=== PATIENT | female | born 1930 | race Caucasian/White ===

== ENCOUNTER 2016-07-07 04:48 | Emergency (ER) | payer MEDICARE ==
[~2016-07-07] VITALS: Ht 152.4 cm; Wt 147.4 kg
--- NOTE | 2016-07-07 04:48 | NUR ---
Patient to ER bed 6 to gown for evaluation. Side rails up. Report given to LOGAN OLMEDO.
--- NOTE | 2016-07-07 04:50 | NUR ---
Patient AAO x4, sitting in bed, brought in by BLS for fall. Patient states she was sitting in her wheel chair and the lift failed and she "slid to the floor", patient states she did not want to come to the ER but the paramedics told her she should. Patient denies pain, denies chest pain, denies shortness of breath. Vital signs stable. No acute distress note. Patient BS 79. Will continue to monitor.
[2016-07-07 04:55] VITALS: BP 118/55; PULSE 75; RESP 14; TEMP 97.9; O2SAT 95
--- NOTE | 2016-07-07 04:55 | NUR ---
ER at bedside examining patient.
[2016-07-07 05:24] LABS: BILIRUBIN,URINE NEGATIVE (NEGATIVE); CLARITY/URINE CLOUDY (CLEAR); COLOR,URINE YELLOW (YELLOW); GLUCOSE,URINE NEGATIVE (NEGATIVE); KETONES,URINE NEGATIVE (NEGATIVE); LEUKOCYTE ESTERASE ,URINE 3+ (NEGATIVE); NITRITE, URINE NEGATIVE (NEGATIVE); PH,URINE 5.5 (5.0-8.0); PROTEIN URINE NEGATIVE (NEGATIVE); UROBILINOGEN,URINE 0.2 (0.2-1.0)
[2016-07-07 05:30] LABS: BLOOD, URINE TRACE (NEGATIVE)
[2016-07-07 05:32] LABS: BACTERIA,URINE MODERATE /HPF (None Seen); MUCUS,URINE None Seen /LPF (None Seen); RBC,URINE 0-3 /HPF (0-3); WBC,URINE 80-100 /HPF (0-3)
[2016-07-07 05:35] LABS: BASOPHILS % (AUTO) 0.2 % (0.0-2.0); EOSINOPHILS # (AUTO) 0.4 K/uL (0.0-0.4); EOSINOPHILS % (AUTO) 5.3 % (0.0-4.0); HEMATOCRIT 33.2 % (36-48); HEMOGLOBIN 10.8 g/dL (12.0-16.0); LYMPHOCYTES # (AUTO) 1.2 K/uL (1.0-5.5); MEAN CORPUSCULAR HEMOGLOBIN 30 pg (27-31); MEAN CORPUSCULAR HGB CONC 33 % (32-36); MEAN CORPUSCULAR VOLUME 92 fL (79.0-98.0); MONOCYTES # (AUTO) 0.6 K/uL (0.0-1.0); MONOCYTES % (AUTO) 6.9 % (1.7-9.3); NEUTROPHILS % (AUTO) 72.6 % (40.0-70.0); PLATELET COUNT (AUTO) 218 K/uL (130-430); RED BLOOD CELL COUNT(AUTO) 3.62 MIL/uL (4.2-6.2); RED CELL DISTRIBUTION WIDTH 12.8 % (9.0-15.0); WHITE BLOOD COUNT (AUTO) 8.2 K/uL (4.8-10.8)
[2016-07-07 05:43] LABS: ANION GAP 7 (5-15); CALCIUM 9.1 mg/dL (8.4-11.0); CHLORIDE 104 mmol/L (98-107); CREATININE 1.54 mg/dL (0.55-1.30); GLUCOSE 94 mg/dL (70-99); POTASSIUM 4.5 mmol/L (3.5-5.1); SODIUM SERUM 138 mmol/L (136-145); UREA NITROGEN, BLOOD 33 mg/dL (8-21)
[2016-07-07 05:48] LABS: ALANINE AMINOTRANSFERASE 19 U/L (12-78); ALBUMIN 3.5 g/dL (3.4-4.8); ASPARTATE AMINOTRANSFERASE 15 U/L (10-37); TOTAL BILIRUBIN 0.5 mg/dL (0.0-1.0); TOTAL PROTEIN, SERUM 7.3 g/dL (6.4-8.3)
--- NOTE | 2016-07-07 05:50 | NUR ---
Patient c/o Left shoulder and left elbow pain 12/06. Ice pack placed on left elbow. Md informed. No new orders at this time.
[2016-07-07] MEDS ORDERED: cefTRIAXone 1 GM VIAL IM ONE (06:00)
[2016-07-07] MEDS ORDERED: LIDOCAINE 1%, 20 ML MDV 20 ML ONE (06:16)
[2016-07-07] MEDS ORDERED: MORPHINE 4 MG/ML INJ. SYRINGE ONE (06:23)
[2016-07-07] MEDS ORDERED: MORPHINE 4 MG/ML INJ. SYRINGE IM ONE (06:30)
[2016-07-07] MEDS ORDERED: ONDANSETRON HCL 4 MG/2 ML VIAL IM ONE (06:30)
--- NOTE | 2016-07-07 06:35 | NUR ---
Patient tolerated medication well. No acute distress noted. Will continue to monitor.
--- NOTE | 2016-07-07 06:49 | NUR ---
Patient daughter Peg Staples called at at patient's request. Daughter aware of mother's condition and requests to be updated when information is known on transport time home.
--- NOTE | 2016-07-07 07:11 | NUR ---
received pt from operation shift supervisor Derrick,pt is for discharge, awaiting ambulance, alreday arranged by [facility].
--- NOTE | 2016-07-07 09:23 | NUR ---
Patient given written and verbal discharge instructions and verbalizes understanding. ER MD discussed with patient the results and treatment provided. Given copies of tests performed in ER. Patient in stable condition. ID arm band removed. Rx of x3 given. Patient educated on pain management and to follow up with PMD. Pain Scale . Opportunity for questions provided and answered.
[2016-07-07 09:37] VITALS: BP 106/80; PULSE 72; RESP 18; TEMP 98; O2SAT 99
== END 2016-07-07 09:23 | disposition home or self-care (01) ==
LOC: SED 04:48
DX: S42.295G Other nondisplaced fracture of upper end of left humerus, subsequent encounter for fracture with delayed healing (principal); F41.9 Anxiety disorder, unspecified; E11.9 Type 2 diabetes mellitus without complications; I10 Essential (primary) hypertension; Z91.81 History of falling; W19.XXXD Unspecified fall, subsequent encounter
CPT/HCPCS: 29105; 36415; 73030; 73070; 80053; 81000; 82962; 85025; 87086; 96372; 99285; J0696; J2001; J2270; J2405

== ENCOUNTER 2016-08-05 21:04 | Emergency (ER) | payer MEDICARE ==
[~2016-08-05] VITALS: Ht 154.9 cm; Wt 102.1 kg
[2016-08-05 21:10] VITALS: BP 108/36; PULSE 72; RESP 18; TEMP 97.8; O2SAT 95
--- NOTE | 2016-08-05 21:10 | NUR ---
Patient to ER bed 2 to gown for evaluation. Side rails up. Assumed care of pt.
--- NOTE | 2016-08-05 21:11 | NUR ---
Pt brought in by [facility] ambulance with c/o fall. Pt was using walker, tripped and fell, landed on left shoulder. Pt states pain 7/10, pain increased with movement. Pt denies LOC and KO. Pt respirations even and unlabored. VSS. Pt speaking in full, complete sentences. Will continue to monitor.
--- NOTE | 2016-08-05 22:28 | NUR ---
ER at bedside examining patient.
[2016-08-05] MEDS ORDERED: MORPHINE 4 MG/ML INJ. SYRINGE IM ONE (22:30)
[2016-08-05] MEDS ORDERED: DIPHENHYDRAMINE HCL 25 MG CAPSULE PO ONE (22:30)
--- NOTE | 2016-08-05 22:35 | NUR ---
# 20 gauge angiocath placed to right AC. Use of asceptic technique. Opsite placed over site. Blood return noted. Flushed with 10 cc of normal saline. No evidence of infiltration noted. Patient tolerated well.
[2016-08-05] MEDS ORDERED: NACL 0.9% 1,000 ML IV ONE (23:32)
[2016-08-06 00:16] LABS: BASOPHILS % (AUTO) 0.2 % (0.0-2.0); EOSINOPHILS # (AUTO) 0.1 K/uL (0.0-0.4); EOSINOPHILS % (AUTO) 1.1 % (0.0-4.0); HEMOGLOBIN 11.3 g/dL (12.0-16.0); LYMPHOCYTES # (AUTO) 1.1 K/uL (1.0-5.5); LYMPHOCYTES % (AUTO) 9.4 % (20.5-51.5); MEAN CORPUSCULAR HEMOGLOBIN 31 pg (27-31); MEAN CORPUSCULAR HGB CONC 34 % (32-36); MEAN CORPUSCULAR VOLUME 90 fL (79.0-98.0); MONOCYTES # (AUTO) 0.7 K/uL (0.0-1.0); MONOCYTES % (AUTO) 5.9 % (1.7-9.3); NEUTROPHILS # (AUTO) 9.4 K/uL (1.8-7.7); NEUTROPHILS % (AUTO) 83.4 % (40.0-70.0); PLATELET COUNT (AUTO) 251 K/uL (130-430); RED BLOOD CELL COUNT(AUTO) 3.66 MIL/uL (4.2-6.2); RED CELL DISTRIBUTION WIDTH 12.7 % (9.0-15.0); WHITE BLOOD COUNT (AUTO) 11.3 K/uL (4.8-10.8)
--- NOTE | 2016-08-06 00:16 | NUR ---
Patient resting quietly. No acute distress noted. Vital signs within normal range. Will continue to monitor.
[2016-08-06 00:21] LABS: ANION GAP 11 (5-15); CALCIUM 9.5 mg/dL (8.4-11.0); CHLORIDE 101 mmol/L (98-107); GLUCOSE 75 mg/dL (70-99); POTASSIUM 4.2 mmol/L (3.5-5.1); SODIUM SERUM 137 mmol/L (136-145); UREA NITROGEN, BLOOD 30 mg/dL (8-21)
[2016-08-06 00:23] LABS: INR 1.1 (0.8-1.2); PROTHROMBIN TIME 11.4 SECS (9.5-12.5)
[2016-08-06 00:32] LABS: ALANINE AMINOTRANSFERASE 16 U/L (12-78); ALBUMIN 3.4 g/dL (3.4-4.8); ASPARTATE AMINOTRANSFERASE 22 U/L (10-37); LIPASE 67 U/L (73-393); TOTAL BILIRUBIN 0.6 mg/dL (0.0-1.0); TOTAL PROTEIN, SERUM 7.7 g/dL (6.4-8.3)
[2016-08-06 01:28] LABS: BILIRUBIN,URINE NEGATIVE (NEGATIVE); BLOOD, URINE NEGATIVE (NEGATIVE); CLARITY/URINE CLEAR (CLEAR); COLOR,URINE YELLOW (YELLOW); GLUCOSE,URINE NEGATIVE (NEGATIVE); KETONES,URINE NEGATIVE (NEGATIVE); LEUKOCYTE ESTERASE ,URINE NEGATIVE (NEGATIVE); NITRITE, URINE NEGATIVE (NEGATIVE); PH,URINE 5.5 (5.0-8.0); PROTEIN URINE NEGATIVE (NEGATIVE); UROBILINOGEN,URINE 0.2 (0.2-1.0)
[2016-08-06 02:52] VITALS: BP 113/97; PULSE 70; RESP 18; TEMP 97.9; O2SAT 93
--- NOTE | 2016-08-06 02:58 | NUR ---
Patient to be transferred to [facility]. Is being transferred due to higher level of care. Receiving facility has accepting physician and available space. ER physician has signed transfer form. Patient or responsible constitution party has agreed to transfer and signed form. Patient belongings inventoried and will be sent with patient. Copy of nursing notes, lab reports, EKG, Physicians Orders and X-rays to be sent with patient. Report called to LOGAN BEEBE at receiving facility. Receiving physician is . [facility] here to fern picker pt.
== END 2016-08-06 02:52 | disposition short-term general hospital (02) ==
LOC: SED 21:04
DX: S40.012A Contusion of left shoulder, initial encounter (principal); S42.202G Unspecified fracture of upper end of left humerus, subsequent encounter for fracture with delayed healing; E11.9 Type 2 diabetes mellitus without complications; I10 Essential (primary) hypertension; F41.9 Anxiety disorder, unspecified; R53.1 Weakness; Z96.649 Presence of unspecified artificial hip joint; Z96.653 Presence of artificial knee joint, bilateral; W01.0XXA Fall on same level from slipping, tripping and stumbling without subsequent striking against object, initial encounter; Y93.89 Activity, other specified; Y92.89 Other specified places as the place of occurrence of the external cause; Y99.8 Other external cause status
CPT/HCPCS: 36415; 71010; 73060; 80053; 81003; 83690; 83880; 85025; 85610; 96361; 96374; 99285; J2270; J7030; Q0163; 93005

== ENCOUNTER 2016-08-10 12:18 | Emergency (ER) | payer MEDICARE ==
[~2016-08-10] VITALS: Ht 162.6 cm; Wt 90.7 kg
[2016-08-10 12:37] VITALS: BP_SYST 152
[2016-08-10] MEDS ORDERED: DEXTROSE 50% JECT 50 ML DISP.SYRIN IVP ONE (12:45)
[2016-08-10 13:00] LABS: BASOPHILS % (AUTO) 0.2 % (0.0-2.0); EOSINOPHILS # (AUTO) 0.5 K/uL (0.0-0.4); EOSINOPHILS % (AUTO) 7.4 % (0.0-4.0); HEMATOCRIT 33.5 % (36-48); HEMOGLOBIN 11.3 g/dL (12.0-16.0); LYMPHOCYTES # (AUTO) 0.5 K/uL (1.0-5.5); LYMPHOCYTES % (AUTO) 7.6 % (20.5-51.5); MEAN CORPUSCULAR HEMOGLOBIN 30 pg (27-31); MEAN CORPUSCULAR HGB CONC 34 % (32-36); MEAN CORPUSCULAR VOLUME 90 fL (79.0-98.0); MONOCYTES # (AUTO) 0.5 K/uL (0.0-1.0); MONOCYTES % (AUTO) 7.1 % (1.7-9.3); NEUTROPHILS # (AUTO) 5.4 K/uL (1.8-7.7); NEUTROPHILS % (AUTO) 77.7 % (40.0-70.0); PLATELET COUNT (AUTO) 299 K/uL (130-430); RED BLOOD CELL COUNT(AUTO) 3.72 MIL/uL (4.2-6.2); RED CELL DISTRIBUTION WIDTH 12.5 % (9.0-15.0); WHITE BLOOD COUNT (AUTO) 6.9 K/uL (4.8-10.8)
[2016-08-10 13:07] LABS: ANION GAP 8 (5-15); CALCIUM 8.8 mg/dL (8.4-11.0); CHLORIDE 104 mmol/L (98-107); CREATININE 1.26 mg/dL (0.55-1.30); GLUCOSE 69 mg/dL (70-99); POTASSIUM 3.8 mmol/L (3.5-5.1); SODIUM SERUM 139 mmol/L (136-145); UREA NITROGEN, BLOOD 15 mg/dL (8-21)
[2016-08-10 13:12] LABS: PROTHROMBIN TIME 11.3 SECS (9.5-12.5)
[2016-08-10 13:19] LABS: ALANINE AMINOTRANSFERASE 18 U/L (12-78); ASPARTATE AMINOTRANSFERASE 23 U/L (10-37); TOTAL BILIRUBIN 0.3 mg/dL (0.0-1.0)
[2016-08-10 20:24] VITALS: BP_SYST 115
== END 2016-08-10 16:48 | disposition short-term general hospital (02) ==
LOC: SED 12:18
DX: E11.649 Type 2 diabetes mellitus with hypoglycemia without coma (principal); R41.82 Altered mental status, unspecified; I10 Essential (primary) hypertension; F41.9 Anxiety disorder, unspecified
CPT/HCPCS: 36415; 71010; 80053; 82962; 83605; 84484; 85025; 85610-TC; 85730-TC; 87040-TC; 93005; 96374; 99285

== ENCOUNTER 2016-08-28 19:12 | Emergency (ER) | payer MEDICARE ==
[~2016-08-28] VITALS: Ht 154.9 cm; Wt 113.4 kg
[2016-08-28 19:12] VITALS: BP_SYST 135
--- NOTE | 2016-08-28 19:12 | NUR ---
Placed in room 1 . Placed on cardiac cath technologist, blood pressure machine and pulse oximeter. To gown for exam. Side rails up. Report given to Deb FORD.
--- NOTE | 2016-08-28 19:20 | NUR ---
MD Yoder at bedside examining pt
--- NOTE | 2016-08-28 19:30 | NUR ---
Pt BIB EMS with c/o generalized weakness and falling off of bed today. Pt stated she was in bed, tried to reach for food, lost balance and fell off bed, pt denies any trauma or pain. No sign of active bleeding noted. A&Ox4, denies SOB or chestpain, denies N/V/D. Will continue to monitor
[2016-08-28 19:56] LABS: BILIRUBIN,URINE NEGATIVE (NEGATIVE); CLARITY/URINE HAZY (CLEAR); COLOR,URINE YELLOW (YELLOW); GLUCOSE,URINE NEGATIVE (NEGATIVE); KETONES,URINE NEGATIVE (NEGATIVE); LEUKOCYTE ESTERASE ,URINE 3+ (NEGATIVE); NITRITE, URINE NEGATIVE (NEGATIVE); PROTEIN URINE NEGATIVE (NEGATIVE); UROBILINOGEN,URINE 0.2 (0.2-1.0)
[2016-08-28 19:58] LABS: BLOOD, URINE TRACE (NEGATIVE)
--- NOTE | 2016-08-28 20:05 | NUR ---
Pt taken off ED for XR by radiologist via rbj
[2016-08-28 20:23] LABS: BASOPHILS % (AUTO) 0.3 % (0.0-2.0); EOSINOPHILS # (AUTO) 0.6 K/uL (0.0-0.4); EOSINOPHILS % (AUTO) 6.1 % (0.0-4.0); HEMATOCRIT 34.1 % (36-48); HEMOGLOBIN 11.7 g/dL (12.0-16.0); LYMPHOCYTES # (AUTO) 1.1 K/uL (1.0-5.5); LYMPHOCYTES % (AUTO) 12.2 % (20.5-51.5); MEAN CORPUSCULAR HEMOGLOBIN 31 pg (27-31); MEAN CORPUSCULAR HGB CONC 34 % (32-36); MEAN CORPUSCULAR VOLUME 90 fL (79.0-98.0); MONOCYTES # (AUTO) 0.4 K/uL (0.0-1.0); MONOCYTES % (AUTO) 4.7 % (1.7-9.3); NEUTROPHILS # (AUTO) 6.9 K/uL (1.8-7.7); NEUTROPHILS % (AUTO) 76.7 % (40.0-70.0); PLATELET COUNT (AUTO) 278 K/uL (130-430); RED BLOOD CELL COUNT(AUTO) 3.79 MIL/uL (4.2-6.2)
[2016-08-28 20:24] LABS: BACTERIA,URINE MANY /HPF (None Seen)
[2016-08-28 20:31] LABS: ANION GAP 7 (5-15); CALCIUM 9.5 mg/dL (8.4-11.0); CHLORIDE 102 mmol/L (98-107); GLUCOSE 108 mg/dL (70-99); POTASSIUM 4.6 mmol/L (3.5-5.1); SODIUM SERUM 139 mmol/L (136-145); UREA NITROGEN, BLOOD 24 mg/dL (8-21)
[2016-08-28 20:36] LABS: ALANINE AMINOTRANSFERASE 16 U/L (12-78); ALBUMIN 3.1 g/dL (3.4-4.8); ASPARTATE AMINOTRANSFERASE 22 U/L (10-37); CREATINE KINASE, TOTAL 23 U/L (26-192); TOTAL BILIRUBIN 0.5 mg/dL (0.0-1.0)
[2016-08-28 20:37] LABS: ACETAMINOPHEN < 1 ug/mL (1-30); ALCOHOL, BLOOD < 3 mg/dL (<10); SALICYLATE 1 mg/dL (3-30)
[2016-08-28] MEDS ORDERED: TEMA15CA PO (20:39)
[2016-08-28] MEDS ORDERED: METF-509 PO (20:39)
[2016-08-28] MEDS ORDERED: ATEN50TA PO (20:39)
[2016-08-28] MEDS ORDERED: SIMV5TAB53 PO (20:39)
[2016-08-28] MEDS ORDERED: PARO40TA80 PO (20:39)
[2016-08-28] MEDS ORDERED: BUSP5TAB3 PO (20:39)
[2016-08-28] MEDS ORDERED: LOSA50TA20 PO (20:39)
[2016-08-28] MEDS ORDERED: FURO-150 PO (20:39)
[2016-08-28] MEDS ORDERED: GLIP5TAB13 PO (20:39)
[2016-08-28] MEDS ORDERED: BUPR75TA8 PO (20:39)
[2016-08-28] MEDS ORDERED: NORT50CA PO (20:39)
[2016-08-28] MEDS ORDERED: OMEP-130 PO (20:39)
[2016-08-28] MEDS ORDERED: SPIR25TA4 PO (20:39)
--- NOTE | 2016-08-28 20:39 | NUR ---
Medication reconciliation completed with information provided by family. Any prior medication reconciliation on file was reviewed and corrected.
[2016-08-28 20:46] LABS: PROTHROMBIN TIME 11.1 SECS (9.5-12.5)
[2016-08-28 21:09] LABS: BENZODIAZEPINE, URINE POSITIVE (NEG <=150); OPIATE, URINE POSITIVE (NEG <=100)
[2016-08-28 21:10] LABS: BARBITURATE, URINE NEGATIVE (NEG <=200); CANNABINOID, URINE NEGATIVE (NEG <=50); COCAINE, URINE NEGATIVE (NEG <=150); METHAMPHETAMINES SCREEN,URINE NEGATIVE (NEG <=500); PHENCYCLIDINE SCREEN,URINE NEGATIVE (NEG <=25); UR TRICYCLIC ANTIDEPRESSANTS POSITIVE (NEG <=300); URINE AMPHETAMINE NEGATIVE (NEG <=500); URINE METHADONE NEGATIVE (NEG <=200); URINE OXYCODONE SCREEN NEGATIVE (NEG <=100); URINE PROPOXYPHENE SCREEN NEGATIVE (NEG <=300)
[2016-08-28] MEDS ORDERED: cefTRIAXone 1 GM IVPB PREMIX 50 ML IV ONE (21:30)
--- NOTE | 2016-08-28 22:15 | NUR ---
pt in bed, denies distress. Will continue to monitor
[2016-08-28] MEDS ORDERED: LORazepam 2 MG/ML VIAL (FOR ER USE) IVP ONE (23:00)
--- NOTE | 2016-08-28 23:00 | NUR ---
Pt denies distress, VSS. Care attended
[2016-08-28 23:52] VITALS: BP_SYST 103
--- NOTE | 2016-08-28 23:52 | NUR ---
Patient given written and verbal discharge instructions and verbalizes understanding. ER MD Najera discussed with patient the results and treatment provided. Patient in stable condition. ID arm band removed. IV catheter removed intact and dressing applied, no active bleeding. Rx of macrobid given. Patient educated on pain management and to follow up with PMD. Pain Scale 0/10. Opportunity for questions provided and answered.
== END 2016-08-28 23:52 | disposition home or self-care (01) ==
LOC: SED 19:12
DX: N39.0 Urinary tract infection, site not specified (principal); R68.2 Dry mouth, unspecified; E11.9 Type 2 diabetes mellitus without complications; I10 Essential (primary) hypertension; F41.9 Anxiety disorder, unspecified
CPT/HCPCS: 36415; 70450; 71010; 80053; 80307; 81000; 82550; 83605; 84484; 85025; 85610; 85730; 87040; 87086; 93005; 96365; 96375; 99285; G0480; G0481; G0482; J0696; J2060